=== PATIENT | male | born 1985 | race Caucasian/White ===

== ENCOUNTER 2019-01-21 23:10 | Emergency (ER) | payer BC ==
[~2019-01-21] VITALS: Ht 175.3 cm; Wt 77.6 kg
[2019-01-21 23:12] VITALS: BP 109/71
--- NOTE | 2019-01-21 23:30 | NUR ---
FIRST CONTACT WITH PT. PT HERE REQUESTING MEDICATION FOR HELP WITH HIS THOUGHTS, SAW A DR IN [place] SEVERAL DAYS AGO AND WAS GIVEN SCRIPT BUT HE CHOSE NOT TO TAKE IT, RELOCATED TO [facility] 1 DAY AGO AND WOULD LIKE THE MEDICATION NOW. WAS IN [facility] AT THE TIME BECAUSE HIS AUNT SAID HIS THOUGHTS WERE NOT RATIONAL. PT DENIES SI/HI AT THIS TIME. STATES THAT THIS WAS HIS FIRST EPISODE OF PHYCHIATRIC FACILITY. PT DENIES ANY MEDICAL COMPLAINTS. PT'S AOX4. RESPS EVEN AND UNLABORED. AWAITING ORDERES.
--- NOTE | 2019-01-21 23:33 | NUR ---
PT DENIES SI/HI AT THIS TIME.
--- NOTE | 2019-01-22 00:05 | NUR ---
Patient given discharge instructions and they have confirmed that they understand the instructions. Patient ambulatory with steady gait.
== END 2019-01-22 00:06 | disposition home or self-care (01) ==
LOC: ED 01-22
DX: F17.200 Nicotine dependence, unspecified, uncomplicated (principal); Z76.0 Encounter for issue of repeat prescription
CPT/HCPCS: 99281

== ENCOUNTER 2019-01-23 12:17 | Emergency (ER) | payer BC, OTHER ==
[~2019-01-23] VITALS: Ht 175.3 cm; Wt 79.0 kg
[2019-01-23 12:33] VITALS: BP 100/65
--- NOTE | 2019-01-23 12:47 | NUR ---
FIRST CONTACT WITH PT. PT STATES "I CAME IN YESTERDAY FOR A MEDICATION. TODAY I HAVE THE NAME." NO MEDICAL COMPLAINTS.
--- NOTE | 2019-01-23 13:06 | NUR ---
Patient given discharge instructions and they have confirmed that they understand the instructions. Patient ambulatory with steady gait.
== END 2019-01-23 13:07 | disposition home or self-care (01) ==
LOC: ED 13:01
DX: Z00.8 Encounter for other general examination (principal); F17.210 Nicotine dependence, cigarettes, uncomplicated
CPT/HCPCS: 99281